=== PATIENT | male | born 1990 | race Caucasian/White ===

== ENCOUNTER 2016-11-25 10:21 | Emergency (ER) | payer SELFPAY | END 2016-11-25 13:15 | disposition home or self-care (01) | LOC: D.ER 10:21 | DX: S61.217A Laceration without foreign body of left little finger without damage to nail, initial encounter (principal); S56.128A Laceration of flexor muscle, fascia and tendon of left little finger at forearm level, initial encounter; W26.8XXA Contact with other sharp object(s), not elsewhere classified, initial encounter; Y93.89 Activity, other specified; Y92.89 Other specified places as the place of occurrence of the external cause ==

== ENCOUNTER 2016-12-06 08:45 | Emergency (ER) | payer SELFPAY | END 2016-12-06 09:37 | disposition home or self-care (01) | LOC: D.ER 08:45 | DX: T81.31XA Disruption of external operation (surgical) wound, not elsewhere classified, initial encounter (principal); F17.200 Nicotine dependence, unspecified, uncomplicated; S61.217D Laceration without foreign body of left little finger without damage to nail, subsequent encounter ==